=== PATIENT | female | born 1955 | race Caucasian/White ===

== ENCOUNTER 2017-03-21 18:01 | Emergency (ER) | payer MEDICARE, OTHER ==
[2017-03-21 18:25] VITALS: BP 131/72; PULSE 80; RESP 20; TEMP 98.1
--- NOTE | 2017-03-21 18:58 | ED ---
Lower Extremity Injury HPI - General Chief Complaint: Extremity Injury, Lower Stated Complaint: Fell/foot injury Time Seen by Provider: 03/21/17 18:35 Source: patient, RN notes reviewed, old records reviewed Mode of arrival: wheelchair Limitations: no limitations - History of Present Illness Initial Comments: Physical 62-year-old female chief complaint of right foot and ankle pain. Patient reports that she was walking down a bank and slipped in the mud. Patient reports that her knee and from underneath her and she landed on her foot and twisted it. Patient reports that she has some swelling and pain over the lateral aspect of the foot and ankle. Patient reports that she also has a right knee replacement and is going through [facility] to have the back of her neighbor strengthened. Patient reports that her knee bent she' s not having increased pain with that as well. Patient denies any head injury or loss of consciousness. She reports that she was able to bear weight over her foot for a few steps but not for prolonged periods of time. Patient denies any fever or chills, nausea or vomiting abdominal pain, shortness of breath, chest pain, dysuria, hematuria, constipation, peripheral paresthesias. - Related Data Home Medications Medication Instructions Recorded Confirmed ALPRAZolam [Xanax] 0.5 mg PO BID 11/11/15 11/20/15 Acetaminophen [Tylenol] 500 mg PO Q4-6H PRN 11/11/15 11/20/15 Aloe Vera 5,000 mg PO DAILY 11/11/15 11/20/15 Astragalus 1 tab PO BID 11/11/15 11/20/15 Cetirizine HCl 10 mg PO DAILY 11/11/15 11/20/15 Metoprolol Succinate [Toprol XL] 12.5 mg PO QAM 11/11/15 11/20/15 Montelukast [Singulair] 10 mg PO QAM 11/11/15 11/20/15 Multivitamins, Thera [Multivitamin 1 tab PO DAILY 11/11/15 11/20/15 (formulary)] Sertraline [Zoloft] 50 mg PO HS 11/11/15 11/20/15 Spironolactone [Aldactone] 25 mg PO BID 11/11/15 11/20/15 levETIRAcetam [Keppra] 250 mg PO QAM 11/11/15 11/20/15 levETIRAcetam [Keppra] 500 mg PO HS 11/11/15 11/20/15 Warfarin [Coumadin] 7.5 mg PO ONCE 11/20/15 11/20/15 Previous Rx's Medication Instructions Recorded Hydrocodone/Acetaminophen [[place] 1 - 2 each PO Q6HR PRN #90 tab 11/21/15 5-325] Acetaminophen-Codeine 300-30mg 1 tab PO Q6H PRN #12 tablet 03/21/17 [Tylenol #3] Ibuprofen [Motrin] 800 mg PO TID #20 tab 03/21/17 Allergies Allergy/AdvReac Type Severity Reaction Status Date / Time onion Allergy Mild Swelling Verified 03/21/17 18:25 steroids Allergy convulsions Uncoded 03/21/17 18:25 Review of Systems ROS Statement: Those systems with pertinent positive or pertinent negative responses have been documented in the HPI. ROS Other: All systems not noted in ROS Statement are negative. Past Medical History Past Medical History: Asthma, GERD/Reflux, Osteoarthritis (OA), Seizure Disorder , Skin Disorder Additional Past Medical History / Comment(s): migraines,last seizure approx 1 yr ago,states "b/p drops when up and doing to much", chronic hives,Meniere's Disease,tx of UTI Sep 2015 History of Any Multi-Drug Resistant Organisms: None Reported Past Surgical History: Joint Replacement, Orthopedic Surgery Additional Past Surgical History / Comment(s): lt knee arthroscopy,D&C, rt foot piece of sting ray removed, nasal/septum repair, TOTAL RIGHT KNEE Past Anesthesia/Blood Transfusion Reactions: Family History of Problems w/ Anesthesia, Motion Sickness, Postoperative Nausea & Vomiting (PONV) Additional Past Anesthesia/Blood Transfusion Reaction / Comment(s): sister PONV Past Psychological History: Anxiety Smoking Status: Never smoker Past Alcohol Use History: None Reported Past Drug Use History: None Reported - Past Family History Sister(s) Family Medical History: Cancer Father Family Medical History: CVA/TIA Mother History Unknown: Yes General Exam - General Exam Comments Initial Comments: Physical pleasant 62-year-old female. No acute distress. Limitations: no limitations General appearance: alert, in no apparent distress Head exam: Present: atraumatic, normocephalic, normal inspection Eye exam: Present: normal appearance, PERRL, EOMI. Absent: scleral icterus, conjunctival injection, periorbital swelling ENT exam: Present: normal exam, mucous membranes moist Neck exam: Present: normal inspection. Absent: tenderness, meningismus, lymphadenopathy Respiratory exam: Present: normal lung sounds bilaterally. Absent: respiratory distress, wheezes, rales, rhonchi, stridor Cardiovascular Exam: Present: regular rate, normal rhythm, normal heart sounds. Absent: systolic murmur, diastolic murmur, rubs, gallop, clicks GI/Abdominal exam: Present: soft, normal bowel sounds. Absent: distended, tenderness, guarding, rebound, rigid Extremities exam: Present: normal inspection, full ROM, normal capillary refill. Absent: tenderness, pedal edema, joint swelling, calf tenderness Right Upper Leg exam: Present: normal inspection, full ROM Knee exam: Present: normal inspection, tenderness Lower Leg exam: Present: normal inspection, full ROM Ankle exam: Present: tenderness (Patient has tenderness over bilateral medial and lateral malleolus.), swelling. Absent: normal inspection Foot/Toe exam: Present: tenderness, swelling. Absent: normal inspection Neurovascular tendon exam: Present: no vascular compromise Gait: observed and limited by pain. negative: observed and normal Back exam: Present: normal inspection Neurological exam: Present: alert, oriented X3, CN II-XII intact Psychiatric exam: Present: normal affect, normal mood Skin exam: Present: warm, dry, intact, normal color. Absent: rash Course Vital Signs 03/21/17 18:23 Temperature 98.1 F Pulse Rate 80 Respiratory 20 Rate Blood Pressure 131/72 O2 Sat by Pulse 98 Oximetry Medical Decision Making - Medical Decision Making Physical 62-year-old female chief complaint of right foot and ankle pain. Patient reports that she was walking down a bank and slipped in the mud. Patient reports that her knee and from underneath her and she landed on her foot and twisted it. Patient reports that she has some swelling and pain over the lateral aspect of the foot and ankle. Patient reports that she also has a right knee replacement and is going through [facility] to have the back of her neighbor strengthened. Patient reports that her knee bent she' s not having increased pain with that as well. Patient denies any head injury or loss of consciousness. She reports that she was able to bear weight over her foot for a few steps but not for prolonged periods of time. Xray are negative for fracture. Placed in knee and ankle leilani wrap, and ankle stirrup splint. Discussed follow up with ortho, and non weight bearing. Patient agrees to treatment plan and will comply. Patient written for small course of pain medicatoin and antiinflammatories. - Radiology Data Radiology results: report reviewed Negative for any acute fracture or dislocatoin. Disposition Clinical Impression: Ankle sprain, Knee sprain Disposition: HOME SELF-CARE Condition: Good Instructions: Ankle Sprain (ED), Knee Sprain (ED) Additional Instructions: Advised to ambulate with crutches. Follow-up with her physical therapist on . Patient also needs to follow-up with orthopedic physician. Return to the emergency department if any alarming signs or symptoms occur. Ambulate wearing the ankle stirrup splint. Prescriptions: Acetaminophen-Codeine 300-30mg [Tylenol #3] 1 tab PO Q6H PRN #12 tablet PRN Reason: Pain Ibuprofen [Motrin] 800 mg PO TID #20 tab Referrals: Armani Castillo DO [Primary Care Provider] - 1-2 days Time of Disposition: 19:38
--- NOTE | 2017-03-21 19:21 | XR ---
EXAMINATION TYPE: XR foot complete RT DATE OF EXAM: 03/21/2017 COMPARISON: NONE HISTORY: Foot pain TECHNIQUE: 3 views right foot FINDINGS: There is advanced degenerative change at the first metatarsophalangeal joint space with adv anced erosions at this joint space. Remaining joint spaces appear preserved. Alignment is normal. No acute fractures are evident. Plantar calcaneal heel spur is present. IMPRESSION: 1. Advanced erosive degenerative changes at the first metatarsophalangeal joint space. 2. Plantar calcaneal heel spur. 3. No acute osseous abnormality.
--- NOTE | 2017-03-21 19:22 | XR ---
EXAMINATION TYPE: XR knee complete RT DATE OF EXAM: 03/21/2017 COMPARISON: NONE HISTORY: Pain TECHNIQUE: Three-view right knee FINDINGS: Right knee prosthesis is present. No joint effusion is evident. No acute fractures are evid ent. IMPRESSION: 1. No acute fractures in a right knee with a previously placed prosthesis.
--- NOTE | 2017-03-21 19:23 | XR ---
EXAMINATION TYPE: XR ankle complete RT DATE OF EXAM: 03/21/2017 COMPARISON: NONE HISTORY: Pain fall TECHNIQUE: Three-view right ankle FINDINGS: No acute fractures evident. Soft tissues are normal. Plantar calcaneal heel spur is present . IMPRESSION: 1. Normal three-view right ankle
== END 2017-03-21 19:56 | disposition home or self-care (01) ==
LOC: EC 18:01
DX: S83.91XA Sprain of unspecified site of right knee, initial encounter (principal); S93.401A Sprain of unspecified ligament of right ankle, initial encounter; F41.9 Anxiety disorder, unspecified; G40.909 Epilepsy, unspecified, not intractable, without status epilepticus; M19.90 Unspecified osteoarthritis, unspecified site; Z96.641 Presence of right artificial hip joint; Z79.01 Long term (current) use of anticoagulants; Z79.899 Other long term (current) drug therapy; Z88.8 Allergy status to other drugs, medicaments and biological substances; Z91.018 Allergy to other foods; Z98.890 Other specified postprocedural states; W01.0XXA Fall on same level from slipping, tripping and stumbling without subsequent striking against object, initial encounter; Y92.009 Unspecified place in unspecified non-institutional (private) residence as the place of occurrence of the external cause; Y93.01 Activity, walking, marching and hiking
CPT/HCPCS: 73562; 73610; 73630; 99283; 29515; L4350

== ENCOUNTER → 2017-05-19 | Outpatient (CLI) | payer MEDICARE, OTHER ==
--- NOTE | 2017-05-19 21:36 | CT ---
EXAMINATION TYPE: CT sinus wo con DATE OF EXAM: 05/19/2017 COMPARISON: NONE HISTORY: DIFFICULTY BREATHING WHEN SLEEPING FROM SINUS DRAINAGE. CT DLP: 575 mGycm. Automated Exposure Control for Dose Reduction was Utilized. TECHNIQUE: CT scan of the sinuses is performed without contrast, axial images are obtained, coronal r eformatted images are also reviewed. FINDINGS: There is osteoarthritis at both temporomandibular joints. There is normal aeration of the v isualized mastoid air cells. There is fairly normal development and aeration of the frontal sphenoid ethmoid and maxillary sinuses . I see no bony destructive process. There is previous osteotomy of the medial martinez of the maxillary sinuses. There is atrophy of the nasal turbinates. There is no evidence of orbital mass. The maxilla is intact. IMPRESSION: Previous maxillary sinus surgery. No evidence of sinusitis. Nasal turbinate atrophy.
== END | disposition home or self-care (01) ==
LOC: RADCTMAIN 19:06
PROVIDERS: ATTEND Otolaryngology Otolaryngology/Facial Plastic Surgery
DX: J34.89 Other specified disorders of nose and nasal sinuses (principal); Z98.890 Other specified postprocedural states
CPT/HCPCS: 70486

== ENCOUNTER 2018-06-15 08:22 | Day surgery (SDC) | payer MEDICARE, OTHER ==
[2018-06-13 09:20] VITALS: BMI 33.4
[~2018-06-15 08:22] MED LIST: LACTATED RINGERS 1,000 ML IV SCH; LIDOCAINE 1% 20 ML VIAL (10MG/ML) FOR IV START INTRADERMA PRN; MIDAZOLAM 2 MG/2 ML VIAL IV PRN
[2018-06-15 08:58] VITALS: RESP 16; TEMP 98.4
[2018-06-15] MEDS ORDERED: PROPOFOL 10 MG/ML 20 ML VIAL IV ONE (09:37)
--- NOTE | 2018-06-15 09:54 | P.PCN ---
Date of Procedure: 06/15/18 Procedure(s) Performed: BRIEF HISTORY: Patient is a 63-year-old pleasant white female, scheduled for an elective colonoscopy as a part of screening for colorectal neoplasia. PROCEDURE PERFORMED: Colonoscopy. PREOPERATIVE DIAGNOSIS: Screening for colon cancer. IV sedation per Anesthesia. PROCEDURE: After informed consent was obtained, the patient, was brought into the endoscopy unit. IV sedation was administered by Anesthesia under continuous monitoring. Digital rectal examination was normal. Initially the Olympus CF- 160 flexible video colonoscope was then inserted in the rectum, gradually advanced into the cecum without any difficulty. Careful examination was performed as the scope was gradually being withdrawn. Ileocecal valve and the appendiceal orifice were visualized and appeared normal. Prep was excellent. Mucosa of the cecum, ascending colon, transverse colon, descending colon, sigmoid colon, and rectum appeared normal. Retroflexion was performed in the rectum and no lesions were seen. The patient tolerated the procedure well. IMPRESSION: Normal-appearing colon from rectum to cecum with no evidence of choledochal neoplasia. RECOMMENDATIONS: Findings of this examination were discussed with the patient as her family. She was advised to have a repeat screening colonoscopy in 10 years.
[2018-06-15 10:15] VITALS: BP 142/68; PULSE 62
== END 2018-06-15 10:33 | disposition home or self-care (01) ==
LOC: ORWHC2ENDO 08:22
PROVIDERS: ATTEND Internal Medicine Gastroenterology
DX: Z12.11 Encounter for screening for malignant neoplasm of colon (principal); Z79.1 Long term (current) use of non-steroidal anti-inflammatories (NSAID); Z79.899 Other long term (current) drug therapy; Z88.8 Allergy status to other drugs, medicaments and biological substances; Z91.018 Allergy to other foods; Z91.09 Other allergy status, other than to drugs and biological substances
CPT/HCPCS: J2704; G0121

== ENCOUNTER → 2023-12-29 | Outpatient (CLI) | payer MEDICARE ==
--- NOTE | 2023-12-29 13:33 | CT ---
EXAMINATION TYPE: CT sinus wo con DATE OF EXAM: 12/29/2023 COMPARISON: None available. HISTORY: Chronic maxillary sinusitis, c/o sinus pressure and headaches CT DLP: 530.50 mGycm. Automated Exposure Control for Dose Reduction was Utilized. TECHNIQUE: CT scan of the sinuses is performed without contrast, axial images are obtained, coronal r eformatted images are also reviewed. FINDINGS: The paranasal sinuses including the frontal, ethmoid, sphenoid, and maxillary sinuses bila terally are well-aerated without abnormal opacification. The ostiomeatal complex is patent bilateral ly on the coronal images. There appears to been prior surgical changes in the medial wall of the maxi llary sinuses bilaterally. Visualized portion of mastoid air cells show no abnormal opacification. The globes are intact bilate rally. IMPRESSION: The sinuses are clear and the ostiomeatal complex is patent bilaterally. Prior surgical changes.
== END | disposition home or self-care (01) ==
LOC: RADCTMAIN 12:46
PROVIDERS: ATTEND Otolaryngology
DX: J32.0 Chronic maxillary sinusitis (principal); R51.9 Headache, unspecified; Z98.890 Other specified postprocedural states
CPT/HCPCS: 70486